=== PATIENT | female | born 1955 | race Caucasian/White ===

== ENCOUNTER 2016-10-23 07:54 | Emergency (ER) | payer OTHER ==
[2016-10-23 08:48] LABS: HEMOGLOBIN 14.2 gm/dl (12.3-15.3); RED BLOOD COUNT 4.59 M/UL (4.00-5.10); WHITE BLOOD COUNT 5.3 K/UL (4.5-11.0)
[2016-10-23 09:15] LABS: BUN/CREATININE RATIO 18 (0-10)
== END 2016-10-23 12:20 | disposition home or self-care (01) ==
LOC: ER1 07:54
PROVIDERS: Emergency Medicine
DX: R55 Syncope and collapse (principal); Z88.5 Allergy status to narcotic agent
CPT/HCPCS: 36415; 70450; 71010; 80053; 82550; 82553; 83874; 84484; 85025; 99284

== ENCOUNTER 2021-03-10 00:58 | Emergency (ER) | payer OTHER ==
[2021-03-10 01:48] LABS: HEMOGLOBIN 14.2 gm/dl (12.3-15.3); RED BLOOD COUNT 4.67 M/UL (4.00-5.10); WHITE BLOOD COUNT 7.1 K/UL (4.5-11.0)
[2021-03-10 02:20] LABS: BUN/CREATININE RATIO 22 (0-10)
== END 2021-03-10 03:26 | disposition home or self-care (01) ==
LOC: ER1 00:58
PROVIDERS: Family Medicine
DX: S01.81XA Laceration without foreign body of other part of head, initial encounter (principal); Z23 Encounter for immunization; W26.8XXA Contact with other sharp object(s), not elsewhere classified, initial encounter
CPT/HCPCS: 12013; 70450; 70486; 71045; 72125; 80053; 82550; 82553; 83605; 83874; 84484; 85025; 85610; 90471; 90715; 93005; 99284; G0480